=== PATIENT | male | born 1975 | race African-American/Black ===

== ENCOUNTER 2025-07-18 04:58 | Inpatient (IN) | payer OTHER ==
[2025-07-18 05:17] LABS: Actual Bicarbonate (HCO3v) 25.7 mEq/L (22-28); Base Excess -0.1 mEq/L (-2.0 to +3.0); Calcium, Ionized (venous) 1.07 mmol/L (1.16-1.32); Chloride (VBG) 101 mmol/L (98-106); Hematocrit-VBG 26 % (42.0-52.0); Hemoglobin (Hb) 8.7 g/dL (13.1-17.2); Potassium (VBG) 4.50 mmol/L (3.70-5.30); Sodium 142 mmol/L (133-146)
[2025-07-18 05:42] LABS: #Basophils Less than 0.03 10x3/uL (0.0-0.2); #Eosinophils 0.12 10x3/uL (0.0-0.7); #Monocytes 0.39 10x3/uL (0.11-0.59); #Neutrophils 5.03 10x3/uL (1.40-6.50); %Basophils 0.3 % (0.0-1.0); %Eosinophils 1.8 % (0.0-10.0); %Lymphocytes 16.3 % (21.0-51.0); %Monocytes 5.8 % (0.0-10.0); %Neutrophils 75.4 % (42.0-75.0); Hematocrit 28.1 % (42.0-52.0); Hemoglobin 8.8 g/dL (14.0-18.0); Mean Corpuscular Hemoglobin 31.2 pg (27.0-31.0); Mean Corpuscular Volume 99.6 fL (78.0-98.0); Platelet Count 112 10x3/uL (130-400); Red Blood Cell (RBC) Count 2.82 mill/uL (4.70-6.10); White Blood Cell (WBC) Count 6.68 10x3/uL (4.8-10.8)
[2025-07-18 05:49] LABS: Anion Gap 18 mmol/L (10-20); BUN (Urea Nitrogen) 72 mg/dL (8.9-20.6); Calc. Creatinine Clearance 0 mL/min (70-130); Calcium 8.9 mg/dL (7.8-10.44); Carbon Dioxide 27 mmol/L (22-29); Chloride 102 mmol/L (98-107); Glucose 105 mg/dL (70-105); Magnesium 2.3 mg/dL (1.6-2.6); Potassium 4.5 mmol/L (3.5-5.1); Sodium 142 mmol/L (136-145)
[2025-07-18] MEDS ORDERED: Ondansetron PF 4 MG/2 ML Vial IVP PRN (06:34)
[2025-07-18] MEDS: Calcitriol 0.25 MCG CAP PO SCH (09:42)
[2025-07-18] MEDS: NIFEdipine XL 30 MG ER.TAB PO SCH (09:42)
[2025-07-18 09:53] LABS: HBSAB Concentration Less than 8.00 mIU/mL; Hep B Core IgM Index 0.10 S/CO (0-0.79); Hep B Surf Ag NONREACTIVE S/CO (NonReactive)
[2025-07-18] MEDS: Heparin 10,000 UNITS/ 10 ML VIAL SLOW IVP SCH (10:10)
[2025-07-18] MEDS: EPOETIN ALFA-EPBX (ESRD) 10,000 UNITS/ML VIAL SC SCH (12:30)
[2025-07-18] MEDS: Sevelamer 2.4 GM PACKET PER TUBE SCH (14:29)
[2025-07-18 14:31] VITALS: BMI 44.7
[2025-07-18] MEDS ORDERED: Ipratropium Bromide 2.5 ml Neb ONE (18:33)
[2025-07-18] MEDS ORDERED: Aspirin Chewable 81 MG TAB ONE (18:33)
[2025-07-18] MEDS ORDERED: Mag-Al 1200 mg/1200 mg/30 ML UDCUP ONE (18:34)
[2025-07-18] MEDS ORDERED: Lidocaine Viscous Sol 2% 15 ml UD Cup ONE (18:34)
[2025-07-18] MEDS: Ipratropium Bromide 2.5 ml Neb NEB PRN (18:41)
[2025-07-18] MEDS: Aspirin Chewable 81 MG TAB PO SCH (18:44)
[2025-07-18] MEDS ORDERED: cloNIDine 0.1 MG TAB ONE (18:58)
[2025-07-18] MEDS ORDERED: cloNIDine 0.1 MG TAB PO SCH (21:00)
[2025-07-19] MEDS: PNEUMOC 20-VAL CONJ-DIP CRM/PF 0.5 ML SYRINGE IM ONE (00:09)
[2025-07-19] MEDS: Gabapentin 300 MG CAP PO SCH (00:17)
[2025-07-19] MEDS: Calcium Carbonate 500 MG ChewTAB PO PRN (04:30)
[2025-07-19 06:42] LABS: #Basophils Less than 0.03 10x3/uL (0.0-0.2); #Eosinophils 0.14 10x3/uL (0.0-0.7); #Monocytes 0.37 10x3/uL (0.11-0.59); #Neutrophils 3.77 10x3/uL (1.40-6.50); %Basophils 0.2 % (0.0-1.0); %Eosinophils 2.5 % (0.0-10.0); %Lymphocytes 23.3 % (21.0-51.0); %Monocytes 6.6 % (0.0-10.0); %Neutrophils 67.0 % (42.0-75.0); Hematocrit 28.2 % (42.0-52.0); Hemoglobin 8.3 g/dL (14.0-18.0); Mean Corpuscular Hemoglobin 30.0 pg (27.0-31.0); Mean Corpuscular Volume 101.8 fL (78.0-98.0); Platelet Count 123 10x3/uL (130-400); Red Blood Cell (RBC) Count 2.77 mill/uL (4.70-6.10); White Blood Cell (WBC) Count 5.62 10x3/uL (4.8-10.8)
[2025-07-19 07:19] LABS: ALT (SGPT) 15 U/L (Less than 45); AST (SGOT) 17 U/L (11-34); Albumin 3.6 g/dL (3.1-4.5); Alkaline Phosphatase 78 U/L (40-110); Anion Gap 16 mmol/L (10-20); BUN (Urea Nitrogen) 50 mg/dL (8.9-20.6); Bilirubin, Total 0.5 mg/dL (0.3-1.2); Calc. Creatinine Clearance 17 mL/min (70-130); Calcium 9.3 mg/dL (7.8-10.44); Carbon Dioxide 26 mmol/L (22-29); Chloride 102 mmol/L (98-107); Globulin 3.7 g/dL (2.4-3.5); Glucose 83 mg/dL (70-105); Potassium 4.2 mmol/L (3.5-5.1); Sodium 140 mmol/L (136-145)
[2025-07-19] MEDS: Aspirin Chewable 81 MG TAB PO SCH (08:47)
[2025-07-19] MEDS: Carvedilol 6.25 MG TAB PO SCH (17:19)
[2025-07-19] MEDS: Nitroglycerin 0.4 MG TAB (25 Tab Bottle) ONE (22:18)
[2025-07-19] MEDS: Nitroglycerin 2% Ointment 1 INCH/1 GM Packet TOP SCH (22:19)
[2025-07-19] MEDS: Mag-Al Plus 1200/1200/120 MG (30 mL) UDCUP PO SCH (22:29)
[2025-07-20] MEDS ORDERED: Mag-Al Plus 1200/1200/120 MG (30 mL) UDCUP PO PRN (01:19)
[2025-07-20] MEDS: hydrALAZINE 20 MG/ML VIAL SLOW IVP SCH (01:36)
[2025-07-20] MEDS: Mag-Al Plus 1200/1200/120 MG (30 mL) UDCUP PO SCH (01:57)
[2025-07-20] MEDS: Acetaminophen 325 MG TAB PO PRN (04:59)
[2025-07-20] MEDS: hydrALAZINE 20 MG/ML VIAL SLOW IVP PRN (06:02)
[2025-07-20] MEDS: Nitroglycerin 0.4 MG TAB (25 Tab Bottle) SL PRN (08:03)
[2025-07-20] MEDS: Calcium Carbonate 500 MG ChewTAB PO SCH (08:39)
[2025-07-20 09:16] LABS: Anion Gap 24 mmol/L (10-20); BUN (Urea Nitrogen) 66 mg/dL (8.9-20.6); Calc. Creatinine Clearance 14 mL/min (70-130); Calcium 9.5 mg/dL (7.8-10.44); Carbon Dioxide 23 mmol/L (22-29); Chloride 100 mmol/L (98-107); Glucose 104 mg/dL (70-105); Potassium 4.8 mmol/L (3.5-5.1); Sodium 142 mmol/L (136-145)
[2025-07-20 09:21] LABS: #Basophils 0.03 10x3/uL (0.0-0.2); #Eosinophils 0.13 10x3/uL (0.0-0.7); #Monocytes 0.40 10x3/uL (0.11-0.59); #Neutrophils 4.09 10x3/uL (1.40-6.50); %Basophils 0.5 % (0.0-1.0); %Eosinophils 2.3 % (0.0-10.0); %Lymphocytes 17.5 % (21.0-51.0); %Monocytes 7.0 % (0.0-10.0); %Neutrophils 71.8 % (42.0-75.0); Hematocrit 34.9 % (42.0-52.0); Hemoglobin 11.0 g/dL (14.0-18.0); Mean Corpuscular Hemoglobin 30.6 pg (27.0-31.0); Mean Corpuscular Volume 97.2 fL (78.0-98.0); Platelet Count 82 10x3/uL (130-400); Red Blood Cell (RBC) Count 3.59 mill/uL (4.70-6.10); White Blood Cell (WBC) Count 5.70 10x3/uL (4.8-10.8)
[2025-07-20 10:53] LABS: Anisocytosis SLIGHT = 6-15 cells HPF (0-5); Platelet Adequacy Comment Platelets Decreased; Polychromasia MODERATE = 3-4 cells HPF (0-2)
[2025-07-20] MEDS: NIFEdipine XL 60 MG ER.TAB PO SCH ×2 (13:59→20:14)
[2025-07-20] MEDS: Carvedilol 6.25 MG TAB PO SCH (17:09)
[2025-07-21 05:25] LABS: #Basophils 0.03 10x3/uL (0.0-0.2); #Eosinophils 0.17 10x3/uL (0.0-0.7); #Monocytes 0.35 10x3/uL (0.11-0.59); #Neutrophils 3.22 10x3/uL (1.40-6.50); %Basophils 0.6 % (0.0-1.0); %Eosinophils 3.4 % (0.0-10.0); %Lymphocytes 23.4 % (21.0-51.0); %Monocytes 7.1 % (0.0-10.0); %Neutrophils 65.1 % (42.0-75.0); Hematocrit 28.2 % (42.0-52.0); Hemoglobin 8.6 g/dL (14.0-18.0); Mean Corpuscular Hemoglobin 30.4 pg (27.0-31.0); Mean Corpuscular Volume 99.6 fL (78.0-98.0); Platelet Count 124 10x3/uL (130-400); Red Blood Cell (RBC) Count 2.83 mill/uL (4.70-6.10); White Blood Cell (WBC) Count 4.95 10x3/uL (4.8-10.8)
[2025-07-21 05:26] LABS: Anion Gap 17 mmol/L (10-20); BUN (Urea Nitrogen) 43 mg/dL (8.9-20.6); Calc. Creatinine Clearance 17 mL/min (70-130); Calcium 9.7 mg/dL (7.8-10.44); Carbon Dioxide 27 mmol/L (22-29); Chloride 99 mmol/L (98-107); Glucose 95 mg/dL (70-105); Potassium 4.3 mmol/L (3.5-5.1); Sodium 139 mmol/L (136-145)
[2025-07-21] MEDS ORDERED: Communication Order-Pharmacy FS SCH (22:15)
[2025-07-22] MEDS: diphenhydrAMINE 25 MG CAP PO SCH (00:41)
[2025-07-22 05:36] LABS: #Basophils 0.03 10x3/uL (0.0-0.2); #Eosinophils 0.15 10x3/uL (0.0-0.7); #Monocytes 0.99 10x3/uL (0.11-0.59); #Neutrophils 5.50 10x3/uL (1.40-6.50); %Basophils 0.4 % (0.0-1.0); %Eosinophils 1.9 % (0.0-10.0); %Lymphocytes 13.9 % (21.0-51.0); %Monocytes 12.7 % (0.0-10.0); %Neutrophils 70.7 % (42.0-75.0); Hematocrit 31.9 % (42.0-52.0); Hemoglobin 9.8 g/dL (14.0-18.0); Mean Corpuscular Hemoglobin 30.6 pg (27.0-31.0); Mean Corpuscular Volume 99.7 fL (78.0-98.0); Platelet Count 109 10x3/uL (130-400); Red Blood Cell (RBC) Count 3.20 mill/uL (4.70-6.10); White Blood Cell (WBC) Count 7.78 10x3/uL (4.8-10.8)
[2025-07-22 05:38] LABS: Anion Gap 20 mmol/L (10-20); BUN (Urea Nitrogen) 47 mg/dL (8.9-20.6); Calc. Creatinine Clearance 19 mL/min (70-130); Calcium 9.8 mg/dL (7.8-10.44); Carbon Dioxide 25 mmol/L (22-29); Chloride 99 mmol/L (98-107); Glucose 80 mg/dL (70-105); Potassium 4.3 mmol/L (3.5-5.1); Sodium 140 mmol/L (136-145)
[2025-07-22] MEDS ORDERED: Vancomycin Dialysis Sliding Scale (Wt > 99) FS SCH (16:45)
[2025-07-22] MEDS ORDERED: Vancomycin 1 GM in Premix 1 BAG IVPB SCH (17:00)
[2025-07-22] MEDS: VANCOMYCIN 2 GRAM/400 ML Premix BAG IVPB SCH (18:09)
[2025-07-23 08:27] LABS: #Basophils 0.04 10x3/uL (0.0-0.2); #Eosinophils Less than 0.03 10x3/uL (0.0-0.7); #Monocytes 1.18 10x3/uL (0.11-0.59); #Neutrophils 6.40 10x3/uL (1.40-6.50); %Basophils 0.4 % (0.0-1.0); %Eosinophils 0.0 % (0.0-10.0); %Lymphocytes 12.2 % (21.0-51.0); %Monocytes 13.2 % (0.0-10.0); %Neutrophils 71.5 % (42.0-75.0); Hematocrit 25.6 % (42.0-52.0); Hemoglobin 8.1 g/dL (14.0-18.0); Mean Corpuscular Hemoglobin 30.8 pg (27.0-31.0); Mean Corpuscular Volume 97.3 fL (78.0-98.0); Platelet Count 106 10x3/uL (130-400); Red Blood Cell (RBC) Count 2.63 mill/uL (4.70-6.10); White Blood Cell (WBC) Count 8.95 10x3/uL (4.8-10.8)
[2025-07-23 08:47] LABS: Anion Gap 22 mmol/L (10-20); BUN (Urea Nitrogen) 54 mg/dL (8.9-20.6); Calc. Creatinine Clearance 17 mL/min (70-130); Calcium 10.1 mg/dL (7.8-10.44); Carbon Dioxide 21 mmol/L (22-29); Chloride 101 mmol/L (98-107); Glucose 103 mg/dL (70-105); Potassium 5.5 mmol/L (3.5-5.1); Sodium 138 mmol/L (136-145)
[2025-07-23] MEDS: LOKELMA 10 GM PACKET PO SCH (13:30)
[2025-07-24 06:22] LABS: ALT (SGPT) 15 U/L (Less than 45); AST (SGOT) 22 U/L (11-34); Albumin 3.0 g/dL (3.1-4.5); Alkaline Phosphatase 58 U/L (40-110); Anion Gap 23 mmol/L (10-20); BUN (Urea Nitrogen) 65 mg/dL (8.9-20.6); Bilirubin, Total 0.6 mg/dL (0.3-1.2); Calc. Creatinine Clearance 14 mL/min (70-130); Calcium 10.5 mg/dL (7.8-10.44); Carbon Dioxide 23 mmol/L (22-29); Chloride 98 mmol/L (98-107); Globulin 4.0 g/dL (2.4-3.5); Glucose 91 mg/dL (70-105); Potassium 5.2 mmol/L (3.5-5.1); Sodium 139 mmol/L (136-145)
[2025-07-24 06:36] LABS: #Basophils Less than 0.03 10x3/uL (0.0-0.2); #Eosinophils Less than 0.03 10x3/uL (0.0-0.7); #Monocytes 0.89 10x3/uL (0.11-0.59); #Neutrophils 5.46 10x3/uL (1.40-6.50); %Basophils 0.3 % (0.0-1.0); %Eosinophils 0.3 % (0.0-10.0); %Lymphocytes 10.8 % (21.0-51.0); %Monocytes 12.3 % (0.0-10.0); %Neutrophils 75.7 % (42.0-75.0); Hematocrit 25.0 % (42.0-52.0); Hemoglobin 7.5 g/dL (14.0-18.0); Mean Corpuscular Hemoglobin 29.6 pg (27.0-31.0); Mean Corpuscular Volume 98.8 fL (78.0-98.0); Platelet Count 106 10x3/uL (130-400); Red Blood Cell (RBC) Count 2.53 mill/uL (4.70-6.10); White Blood Cell (WBC) Count 7.21 10x3/uL (4.8-10.8)
[2025-07-24] MEDS: Calcitriol 0.25 MCG CAP PO SCH (09:36)
[2025-07-25 05:32] LABS: ALT (SGPT) 14 U/L (Less than 45); AST (SGOT) 18 U/L (11-34); Albumin 2.9 g/dL (3.1-4.5); Alkaline Phosphatase 55 U/L (40-110); Anion Gap 25 mmol/L (10-20); BUN (Urea Nitrogen) 87 mg/dL (8.9-20.6); Bilirubin, Total 0.5 mg/dL (0.3-1.2); Calc. Creatinine Clearance 12 mL/min (70-130); Calcium 10.3 mg/dL (7.8-10.44); Carbon Dioxide 22 mmol/L (22-29); Cardiac Risk 5.5 (Less than 4.5); Chloride 96 mmol/L (98-107); Cholesterol 115 mg/dl (< 200 Desired); Globulin 4.3 g/dL (2.4-3.5); Glucose 105 mg/dL (70-105); HDL Cholesterol 21 mg/dL (>60 Neg Risk); LDL Cholesterol, Calculated 60 mg/dL; Magnesium 2.5 mg/dL (1.6-2.6); Potassium 5.1 mmol/L (3.5-5.1); Sodium 138 mmol/L (136-145); Triglycerides 172 mg/dL (Less than 150)
[2025-07-25 05:56] LABS: #Basophils Less than 0.03 10x3/uL (0.0-0.2); #Eosinophils 0.09 10x3/uL (0.0-0.7); #Monocytes 0.82 10x3/uL (0.11-0.59); #Neutrophils 4.67 10x3/uL (1.40-6.50); %Basophils 0.3 % (0.0-1.0); %Eosinophils 1.4 % (0.0-10.0); %Lymphocytes 15.1 % (21.0-51.0); %Monocytes 12.3 % (0.0-10.0); %Neutrophils 70.3 % (42.0-75.0); Hematocrit 22.6 % (42.0-52.0); Hemoglobin 7.0 g/dL (14.0-18.0); Mean Corpuscular Hemoglobin 30.3 pg (27.0-31.0); Mean Corpuscular Volume 97.8 fL (78.0-98.0); Platelet Count 116 10x3/uL (130-400); Red Blood Cell (RBC) Count 2.31 mill/uL (4.70-6.10); White Blood Cell (WBC) Count 6.64 10x3/uL (4.8-10.8)
[2025-07-26 05:31] LABS: ALT (SGPT) 12 U/L (Less than 45); AST (SGOT) 39 U/L (11-34); Albumin 3.2 g/dL (3.1-4.5); Alkaline Phosphatase 66 U/L (40-110); Anion Gap 26 mmol/L (10-20); BUN (Urea Nitrogen) 57 mg/dL (8.9-20.6); Bilirubin, Total 0.5 mg/dL (0.3-1.2); Calc. Creatinine Clearance 16 mL/min (70-130); Calcium 10.0 mg/dL (7.8-10.44); Carbon Dioxide 19 mmol/L (22-29); Chloride 98 mmol/L (98-107); Globulin 4.5 g/dL (2.4-3.5); Glucose 98 mg/dL (70-105); Magnesium 2.4 mg/dL (1.6-2.6); Potassium 5.1 mmol/L (3.5-5.1); Sodium 136 mmol/L (136-145)
[2025-07-26 05:59] LABS: #Basophils Less than 0.03 10x3/uL (0.0-0.2); #Eosinophils 0.10 10x3/uL (0.0-0.7); #Monocytes 0.81 10x3/uL (0.11-0.59); #Neutrophils 3.87 10x3/uL (1.40-6.50); %Basophils 0.3 % (0.0-1.0); %Eosinophils 1.6 % (0.0-10.0); %Lymphocytes 19.5 % (21.0-51.0); %Monocytes 13.3 % (0.0-10.0); %Neutrophils 63.3 % (42.0-75.0); Hematocrit 25.8 % (42.0-52.0); Hemoglobin 8.0 g/dL (14.0-18.0); Mean Corpuscular Hemoglobin 29.5 pg (27.0-31.0); Mean Corpuscular Volume 95.2 fL (78.0-98.0); Platelet Count 129 10x3/uL (130-400); Red Blood Cell (RBC) Count 2.71 mill/uL (4.70-6.10); White Blood Cell (WBC) Count 6.11 10x3/uL (4.8-10.8)
[2025-07-26] MEDS: Melatonin 3 MG TAB PO SCH (06:23)
[2025-07-27 05:11] LABS: #Basophils Less than 0.03 10x3/uL (0.0-0.2); #Eosinophils 0.20 10x3/uL (0.0-0.7); #Monocytes 0.58 10x3/uL (0.11-0.59); #Neutrophils 3.49 10x3/uL (1.40-6.50); %Basophils 0.4 % (0.0-1.0); %Eosinophils 3.5 % (0.0-10.0); %Lymphocytes 21.8 % (21.0-51.0); %Monocytes 10.2 % (0.0-10.0); %Neutrophils 61.5 % (42.0-75.0); Hematocrit 27.3 % (42.0-52.0); Hemoglobin 8.5 g/dL (14.0-18.0); Mean Corpuscular Hemoglobin 29.8 pg (27.0-31.0); Mean Corpuscular Volume 95.8 fL (78.0-98.0); Platelet Count 135 10x3/uL (130-400); Red Blood Cell (RBC) Count 2.85 mill/uL (4.70-6.10); White Blood Cell (WBC) Count 5.68 10x3/uL (4.8-10.8)
[2025-07-27 05:19] LABS: Anion Gap 26 mmol/L (10-20); BUN (Urea Nitrogen) 65 mg/dL (8.9-20.6); Calc. Creatinine Clearance 13 mL/min (70-130); Calcium 11.0 mg/dL (7.8-10.44); Carbon Dioxide 22 mmol/L (22-29); Chloride 97 mmol/L (98-107); Glucose 101 mg/dL (70-105); Potassium 5.3 mmol/L (3.5-5.1); Sodium 140 mmol/L (136-145)
[2025-07-27] MEDS: Lidocaine 2% Viscous Solution 10 ML, Aluminum & Magnesium Hydroxide 30 ML SSW SCH (21:57)
[2025-07-27] MEDS: Nitroglycerin 2% Ointment 1 INCH/1 GM Packet TOP SCH (21:58)
[2025-07-28 04:25] LABS: #Basophils Less than 0.03 10x3/uL (0.0-0.2); #Eosinophils 0.17 10x3/uL (0.0-0.7); #Monocytes 0.53 10x3/uL (0.11-0.59); #Neutrophils 3.92 10x3/uL (1.40-6.50); %Basophils 0.4 % (0.0-1.0); %Eosinophils 3.0 % (0.0-10.0); %Lymphocytes 17.1 % (21.0-51.0); %Monocytes 9.3 % (0.0-10.0); %Neutrophils 69.1 % (42.0-75.0); Hematocrit 27.9 % (42.0-52.0); Hemoglobin 8.4 g/dL (14.0-18.0); Mean Corpuscular Hemoglobin 29.4 pg (27.0-31.0); Mean Corpuscular Volume 97.6 fL (78.0-98.0); Platelet Count 166 10x3/uL (130-400); Red Blood Cell (RBC) Count 2.86 mill/uL (4.70-6.10); White Blood Cell (WBC) Count 5.67 10x3/uL (4.8-10.8)
[2025-07-28 05:21] LABS: Anion Gap 21 mmol/L (10-20); BUN (Urea Nitrogen) 58 mg/dL (8.9-20.6); Calc. Creatinine Clearance 16 mL/min (70-130); Calcium 10.8 mg/dL (7.8-10.44); Carbon Dioxide 28 mmol/L (22-29); Chloride 96 mmol/L (98-107); Glucose 97 mg/dL (70-105); Potassium 4.3 mmol/L (3.5-5.1); Sodium 141 mmol/L (136-145)
[2025-07-28 19:57] LABS: Hematocrit 28.9 % (42.0-52.0); Hemoglobin 9.2 g/dL (14.0-18.0)
[2025-07-29 04:40] LABS: #Basophils 0.03 10x3/uL (0.0-0.2); #Eosinophils 0.24 10x3/uL (0.0-0.7); #Monocytes 0.48 10x3/uL (0.11-0.59); #Neutrophils 3.62 10x3/uL (1.40-6.50); %Basophils 0.5 % (0.0-1.0); %Eosinophils 4.2 % (0.0-10.0); %Lymphocytes 22.2 % (21.0-51.0); %Monocytes 8.5 % (0.0-10.0); %Neutrophils 63.7 % (42.0-75.0); Hematocrit 32.1 % (42.0-52.0); Hemoglobin 9.8 g/dL (14.0-18.0); Mean Corpuscular Hemoglobin 29.7 pg (27.0-31.0); Mean Corpuscular Volume 97.3 fL (78.0-98.0); Platelet Count 173 10x3/uL (130-400); Red Blood Cell (RBC) Count 3.30 mill/uL (4.70-6.10); White Blood Cell (WBC) Count 5.68 10x3/uL (4.8-10.8)
[2025-07-29 05:00] LABS: Anion Gap 24 mmol/L (10-20); BUN (Urea Nitrogen) 65 mg/dL (8.9-20.6); Calc. Creatinine Clearance 13 mL/min (70-130); Calcium 11.3 mg/dL (7.8-10.44); Carbon Dioxide 22 mmol/L (22-29); Chloride 97 mmol/L (98-107); Glucose 88 mg/dL (70-105); Iron 39 ug/dL (65-175); Iron Binding Capacity, Total 169 mcg/dL (261-462); Potassium 4.8 mmol/L (3.5-5.1); Sodium 138 mmol/L (136-145)
[2025-07-29] MEDS ORDERED: Communication Order-Pharmacy FS SCH (10:00)
[2025-07-29] MEDS: Ferrous Sulfate 325 MG TAB PO SCH (16:03)
[2025-07-30 04:42] LABS: #Basophils 0.03 10x3/uL (0.0-0.2); #Eosinophils 0.20 10x3/uL (0.0-0.7); #Monocytes 0.57 10x3/uL (0.11-0.59); #Neutrophils 4.05 10x3/uL (1.40-6.50); %Basophils 0.5 % (0.0-1.0); %Eosinophils 3.4 % (0.0-10.0); %Lymphocytes 16.9 % (21.0-51.0); %Monocytes 9.6 % (0.0-10.0); %Neutrophils 68.4 % (42.0-75.0); Hematocrit 32.8 % (42.0-52.0); Hemoglobin 9.8 g/dL (14.0-18.0); Mean Corpuscular Hemoglobin 29.0 pg (27.0-31.0); Mean Corpuscular Volume 97.0 fL (78.0-98.0); Platelet Count 167 10x3/uL (130-400); Red Blood Cell (RBC) Count 3.38 mill/uL (4.70-6.10); White Blood Cell (WBC) Count 5.92 10x3/uL (4.8-10.8)
[2025-07-30 05:02] LABS: ALT (SGPT) Less than 7 U/L (Less than 45); AST (SGOT) 17 U/L (11-34); Albumin 3.2 g/dL (3.1-4.5); Bilirubin, Direct 0.2 mg/dL (0.1-0.3); Bilirubin, Total 0.5 mg/dL (0.3-1.2)
[2025-07-30 05:08] LABS: Anion Gap 22 mmol/L (10-20); BUN (Urea Nitrogen) 44 mg/dL (8.9-20.6); Calc. Creatinine Clearance 18 mL/min (70-130); Calcium 10.9 mg/dL (7.8-10.44); Carbon Dioxide 24 mmol/L (22-29); Chloride 95 mmol/L (98-107); Glucose 86 mg/dL (70-105); Potassium 4.1 mmol/L (3.5-5.1); Sodium 137 mmol/L (136-145)
[2025-07-30 05:45] LABS: Alkaline Phosphatase 91 U/L (40-110)
[2025-07-31 04:51] LABS: Anion Gap 20 mmol/L (10-20); BUN (Urea Nitrogen) 54 mg/dL (8.9-20.6); Calc. Creatinine Clearance 14 mL/min (70-130); Calcium 10.9 mg/dL (7.8-10.44); Carbon Dioxide 26 mmol/L (22-29); Chloride 98 mmol/L (98-107); Glucose 85 mg/dL (70-105); Potassium 4.6 mmol/L (3.5-5.1); Sodium 139 mmol/L (136-145)
[2025-07-31 05:15] LABS: #Basophils 0.04 10x3/uL (0.0-0.2); #Eosinophils 0.25 10x3/uL (0.0-0.7); #Monocytes 0.63 10x3/uL (0.11-0.59); #Neutrophils 4.07 10x3/uL (1.40-6.50); %Basophils 0.6 % (0.0-1.0); %Eosinophils 4.0 % (0.0-10.0); %Lymphocytes 19.6 % (21.0-51.0); %Monocytes 10.0 % (0.0-10.0); %Neutrophils 64.7 % (42.0-75.0); Hematocrit 31.9 % (42.0-52.0); Hemoglobin 10.0 g/dL (14.0-18.0); Mean Corpuscular Hemoglobin 29.3 pg (27.0-31.0); Mean Corpuscular Volume 93.5 fL (78.0-98.0); Platelet Count 178 10x3/uL (130-400); Red Blood Cell (RBC) Count 3.41 mill/uL (4.70-6.10); White Blood Cell (WBC) Count 6.29 10x3/uL (4.8-10.8)
[2025-07-31] MEDS ORDERED: Nitroglycerin 50 MG/250 ML BOT 250 ML ONE (07:04)
[2025-07-31] MEDS ORDERED: Heparin 10,000 UNITS/ 10 ML VIAL ONE (07:04)
[2025-07-31] MEDS ORDERED: Lidocaine 1% (PF) 30 ML VIAL ONE (07:04)
[2025-07-31] MEDS ORDERED: PHENYLEPHRINE-NS 100 MCG/ML 10 ML SYRINGE ONE (07:04)
[2025-07-31] MEDS ORDERED: Adenosine 6 mg (2 mL) VIAL ONE (07:04)
[2025-07-31] MEDS ORDERED: hydrALAZINE 20 MG/ML VIAL ONE (08:15)
[2025-07-31] MEDS ORDERED: Iopamidol 370 76% 100 ML VIAL ONE (09:24)
[2025-07-31 16:18] VITALS: BMI 45.2
[2025-08-01 04:55] LABS: Anion Gap 22 mmol/L (10-20); BUN (Urea Nitrogen) 66 mg/dL (8.9-20.6); Calc. Creatinine Clearance 12 mL/min (70-130); Calcium 10.2 mg/dL (7.8-10.44); Carbon Dioxide 24 mmol/L (22-29); Chloride 97 mmol/L (98-107); Glucose 93 mg/dL (70-105); Potassium 4.6 mmol/L (3.5-5.1); Sodium 138 mmol/L (136-145)
[2025-08-01 05:03] LABS: #Basophils 0.03 10x3/uL (0.0-0.2); #Eosinophils 0.21 10x3/uL (0.0-0.7); #Monocytes 0.50 10x3/uL (0.11-0.59); #Neutrophils 3.93 10x3/uL (1.40-6.50); %Basophils 0.5 % (0.0-1.0); %Eosinophils 3.7 % (0.0-10.0); %Lymphocytes 16.8 % (21.0-51.0); %Monocytes 8.7 % (0.0-10.0); %Neutrophils 68.7 % (42.0-75.0); Hematocrit 31.7 % (42.0-52.0); Hemoglobin 10.1 g/dL (14.0-18.0); Mean Corpuscular Hemoglobin 29.4 pg (27.0-31.0); Mean Corpuscular Volume 92.4 fL (78.0-98.0); Platelet Count 166 10x3/uL (130-400); Red Blood Cell (RBC) Count 3.43 mill/uL (4.70-6.10); White Blood Cell (WBC) Count 5.72 10x3/uL (4.8-10.8)
[2025-08-01] MEDS ORDERED: Nitroglycerin 0.4 MG TAB (25 Tab Bottle) SL PRN (10:46)
[2025-08-01 16:38] VITALS: TEMP 98.5
[2025-08-01 17:00] VITALS: BP 125/82
== END 2025-08-01 18:30 | disposition home or self-care (01) | DRG 280 ==
LOC: ERS 04:58 → ERHOLD 06:41 → 2NO 21:31
PROVIDERS: ADMIT Student in an Organized Health Care Education/Training Program; ATTEND Student in an Organized Health Care Education/Training Program
PROC: 3E0234Z Introduction of Serum, Toxoid and Vaccine into Muscle, Percutaneous Approach (ICD-10-PCS; 2025-07-18)
PROC: 5A09357 Assistance with Respiratory Ventilation, Less than 24 Consecutive Hours, Continuous Positive Airway Pressure (ICD-10-PCS; 2025-07-18)
PROC: 3E03329 Introduction of Other Anti-infective into Peripheral Vein, Percutaneous Approach (ICD-10-PCS; 2025-07-22)
PROC: 5A1D70Z Performance of Urinary Filtration, Intermittent, Less than 6 Hours Per Day (ICD-10-PCS; 2025-07-23)
PROC: 30233N1 Transfusion of Nonautologous Red Blood Cells into Peripheral Vein, Percutaneous Approach (ICD-10-PCS; 2025-07-25)
PROC: B2111ZZ Fluoroscopy of Multiple Coronary Arteries using Low Osmolar Contrast (ICD-10-PCS; principal; 2025-08-01)
PROC: 4A023N7 Measurement of Cardiac Sampling and Pressure, Left Heart, Percutaneous Approach (ICD-10-PCS; 2025-08-01)
PROC: 05HY33Z Insertion of Infusion Device into Upper Vein, Percutaneous Approach (ICD-10-PCS; 2025-08-01)
DX: I13.0 Hypertensive heart and chronic kidney disease with heart failure and stage 1 through stage 4 chronic kidney disease, or unspecified chronic kidney disease (principal); I50.33 Acute on chronic diastolic (congestive) heart failure; I21.A1 Myocardial infarction type 2; J81.0 Acute pulmonary edema; J96.01 Acute respiratory failure with hypoxia; J18.9 Pneumonia, unspecified organism; N25.81 Secondary hyperparathyroidism of renal origin; Z68.41 Body mass index [BMI] 40.0-44.9, adult; R78.81 Bacteremia; N18.6 End stage renal disease; E87.70 Fluid overload, unspecified; F41.9 Anxiety disorder, unspecified; F32.A Depression, unspecified; E83.39 Other disorders of phosphorus metabolism; E66.01 Morbid (severe) obesity due to excess calories; E87.5 Hyperkalemia; F12.10 Cannabis abuse, uncomplicated; R20.2 Paresthesia of skin; D63.1 Anemia in chronic kidney disease; B95.61 Methicillin susceptible Staphylococcus aureus infection as the cause of diseases classified elsewhere; E83.51 Hypocalcemia; I25.10 Atherosclerotic heart disease of native coronary artery without angina pectoris; D69.6 Thrombocytopenia, unspecified; Z99.2 Dependence on renal dialysis; Z98.890 Other specified postprocedural states; Z23 Encounter for immunization
CPT/HCPCS: 36000; 36415; 36416; 36430; 71045; 76937; 80048; 80053; 80061; 80076; 82550; 82728; 82805; 83540; 83550; 83735; 83880; 83970; 84100; 84484; 85025; 86705; 86706; 86850; 86900; 86901; 87040; 87077; 87081; 87149; 87186; 87340; 90935; 93005; 93010; 93306; 93458; 94640; 94660; 96374; C1769; C1894; G0257; J0153; J0360; J0461; J0690; J0878; J1644; J2003; J2060; J2250; J2270; J2543; J3010; J3375; J7644; P9016; Q5105; Q9967